=== PATIENT | female | born 1965 | race Caucasian/White ===

== ENCOUNTER → 2017-01-31 | Outpatient (CLI) | payer BC, MEDICARE | LOC: LAB 12:33 | DX: N39.0 Urinary tract infection, site not specified (principal) | CPT/HCPCS: 87077; 87086; 87186 ==

== ENCOUNTER → 2021-05-19 | Outpatient (CLI) | payer BC, MEDICARE ==
[~2021-05-19] MED LIST: TESSALON PERLE100 MG PO
== END ==
LOC: CT 10:23
DX: D37.4 Neoplasm of uncertain behavior of colon (principal); K76.0 Fatty (change of) liver, not elsewhere classified; E27.9 Disorder of adrenal gland, unspecified; R91.1 Solitary pulmonary nodule
CPT/HCPCS: 36415; 82565; Q9967